=== PATIENT | female | born 1985 | race American Indian/Alaskan Native ===

== ENCOUNTER 2017-08-28 22:24 | Emergency (ER) | payer MEDICAID, OTHER ==
[2017-08-28 23:37] LABS: Basophils % (Auto) 0.9 % (0.0-1.8); Eosinophils % (Auto) 1.7 % (0.0-4.3); Hematocrit 30.2 % (30.3-42.9); Hemoglobin 9.6 gm/dl (10.1-14.3); Mean Corpuscular HGB Conc 32 % (30-34); Platelet Count 330 K/mm3 (140-440); Red Blood Count 4.65 M/mm3 (3.65-5.03); White Blood Count 8.2 K/mm3 (4.5-11.0)
[2017-08-28 23:40] LABS: Mean Corpuscular Hemoglobin 21 pg (28-32); Mean Corpuscular Volume 65 fl (79-97)
[2017-08-28 23:55] LABS: Bilirubin,Urine NEG (Negative); Blood,Urine NEG (Negative); Ketones,Urine NEG (Negative); Leukocyte Esterase,Urine TR (Negative); Mucus,Urine FEW /HPF; Nitrite,Urine NEG (Negative); Protein,Urine <15 mg/dL mg/dL (Negative)
[2017-08-28 23:56] LABS: Alanine Aminotransferase 7 units/L (7-56); Albumin 3.9 g/dL (3.9-5); Albumin/Globulin Ratio 1.2 %; Alkaline Phosphatase 50 units/L (35-129); Anion Gap 16 mmol/L; BUN/Creatinine Ratio 13; Bilirubin,Total < 0.20 mg/dL (0.1-1.2); Blood Urea Nitrogen 8 mg/dL (7-17); Calcium 8.2 mg/dL (8.4-10.2); Carbon Dioxide 22 mmol/L (22-30); Chloride 102.5 mmol/L (98-107); Glucose 100 mg/dL (65-100); Lipase 29 units/L (13-60); Potassium 3.6 mmol/L (3.6-5.0); Sodium 137 mmol/L (137-145); Total Protein 7.2 g/dL (6.3-8.2)
[2017-08-29 04:33] VITALS: BP 141/67
--- NOTE | 2017-08-29 06:43 | Emergency Department Report ---
ED HPI - General Chief complaint: Abdominal Pain Stated complaint: ABDOMINAL PAIN Time Seen by Provider: 08/29/17 06:35 Source: patient Mode of arrival: Ambulatory Limitations: No Limitations - History of Present Illness Initial comments: This is a 31-year-old female who is previously known to this provider. She is 5, para 3, last menstrual period is July 14. She thinks that she is . She presents to the ER with crampy lower abdominal pain. The pain is intermittent. It does not radiate anywhere. It increases with palpation and decreases with rest. No nausea, vomiting, diarrhea or vaginal bleeding. No irritative or obstructive urinary symptoms. No care as of yet. MD Complaint: abdominal pain -: Gradual Location: pelvis Radiation: none Severity: mild Quality: cramping Consistency: intermittent Improves with: rest Worsens with: movement Associated symptoms: abdominal pain. denies: nausea/vomiting, vaginal bleeding , vaginal discharge, dysuria, headache, vision changes, malaise, dysparuenia, shortness of breath, syncope, weakness - Related Data Previous Rx's Medication Instructions Recorded Last Taken Type Acetaminophen [Tylenol Arthritis] 650 mg PO Q6HR PRN #30 tablet.er 08/29/17 Unknown Rx Doxylamine Succinate/Vit B6 1 each PO QHS PRN #30 tablet. 08/29/17 Unknown Rx [Sharmin Crystal 10-10 mg Tablet] Florencia Root [Florencia] 250 mg PO QID PRN #30 capsule 08/29/17 Unknown Rx Vit Calc,Iron,Folic 1 each PO QDAY #30 tablet 08/29/17 Unknown Rx [ Vitamins] Allergies Allergy/AdvReac Type Severity Reaction Status Date / Time No Known Allergies Allergy Unverified 08/17/13 13:27 ED Review of Systems ROS: Stated complaint: ABDOMINAL PAIN Other details as noted in HPI Constitutional: denies: fever Eyes: denies: eye discharge ENT: denies: epistaxis Respiratory: denies: cough Cardiovascular: denies: chest pain Gastrointestinal: abdominal pain Genitourinary: abnormal menses. denies: dysuria Musculoskeletal: denies: back pain Skin: denies: lesions Neurological: denies: headache Psychiatric: denies: anxiety ED Past Medical Hx - Past Medical History Previous Medical History?: No Hx Hypertension: No Hx Heart Attack/AMI: No Hx Diabetes: No Hx Liver Disease: No Hx Renal Disease: No Hx Seizures: No Hx Asthma: No Hx COPD: No Hx Tuberculosis: No - Surgical History Past Surgical History?: Yes Additional Surgical History: c section - Social History Smoking Status: Never Smoker Substance Use Type: None - Medications Home Medications: Home Medications Medication Instructions Recorded Confirmed Last Taken Type Acetaminophen [Tylenol Arthritis] 650 mg PO Q6HR PRN #30 tablet.er 08/29/17 Unknown Rx Doxylamine Succinate/Vit B6 1 each PO QHS PRN #30 tablet.dr 08/29/17 Unknown Rx [Diclegis Dr 10-10 mg Tablet] Florencia Root [Florencia] 250 mg PO QID PRN #30 capsule 08/29/17 Unknown Rx Vit Calc,Iron,Folic 1 each PO QDAY #30 tablet 08/29/17 Unknown Rx [ Vitamins] ED Physical Exam - General Limitations: No Limitations General appearance: alert, in no apparent distress - Head Head exam: Present: atraumatic, normocephalic - Eye Eye exam: Present: normal appearance, EOMI. Absent: nystagmus - ENT ENT exam: Present: normal exam, normal orophraynx, mucous membranes moist, normal external ear exam - Neck Neck exam: Present: normal inspection, full ROM. Absent: tenderness, meningismus - Respiratory Respiratory exam: Present: normal lung sounds bilaterally. Absent: respiratory distress, wheezes, rales, rhonchi, stridor, chest wall tenderness, accessory muscle use, decreased breath sounds, prolonged expiratory - Cardiovascular Cardiovascular Exam: Present: regular rate, normal rhythm, normal heart sounds. Absent: bradycardia, tachycardia, irregular rhythm, systolic murmur, diastolic murmur, rubs, gallop - GI/Abdominal GI/Abdominal exam: Present: soft, normal bowel sounds. Absent: distended, tenderness, guarding, rebound, rigid, pulsatile mass - Extremities Exam Extremities exam: Present: normal inspection, full ROM, normal capillary refill. Absent: pedal edema, joint swelling, calf tenderness - Back Exam Back exam: Present: normal inspection, full ROM. Absent: tenderness, CVA tenderness (R), CVA tenderness (L), muscle spasm, paraspinal tenderness, vertebral tenderness - Neurological Exam Neurological exam: Present: alert, oriented X3, normal gait, other (Extraocular movements intact. Tongue midline. No facial droop. Facial sensation intact to light touch in the V1, V2, V3 distribution bilaterally. 5 and 5 strength in 4 extremities.. Sensation is intact to light touch in 4 extremities.). Absent : motor sensory deficit - Psychiatric Psychiatric exam: Present: normal affect, normal mood - Skin Skin exam: Present: warm, dry, intact, normal color. Absent: rash ED Course Vital Signs 08/28/17 08/28/17 08/29/17 22:26 22:29 02:47 Temperature 98.0 F 98.0 F 98.1 F Pulse Rate 96 H 96 H 69 Respiratory 18 17 Rate Blood Pressure 142/84 142/84 137/72 Blood Pressure [Left] O2 Sat by Pulse 100 100 100 Oximetry 08/29/17 04:32 Temperature 97.6 F Pulse Rate 73 Respiratory 15 Rate Blood Pressure Blood Pressure 141/67 [Left] O2 Sat by Pulse 100 Oximetry - Reevaluation(s) Reevaluation #1: 08/29/17 09:21 Patient is given a copy of her ultrasound report. ED Medical Decision Making - Lab Data Result diagrams: 08/28/17 23:14 08/28/17 23:14 Vital Signs 08/28/17 08/28/17 08/29/17 22:26 22:29 02:47 Temperature 98.0 F 98.0 F 98.1 F Pulse Rate 96 H 96 H 69 Respiratory 18 17 Rate Blood Pressure 142/84 142/84 137/72 Blood Pressure [Left] O2 Sat by Pulse 100 100 100 Oximetry 08/29/17 04:32 Temperature 97.6 F Pulse Rate 73 Respiratory 15 Rate Blood Pressure Blood Pressure 141/67 [Left] O2 Sat by Pulse 100 Oximetry Lab Results 08/28/17 08/28/17 08/28/17 Range/Units 23:14 23:14 23:14 WBC 8.2 (4.5-11.0) K/mm3 RBC 4.65 (3.65-5.03) M/mm3 Hgb 9.6 L (10.1-14.3) gm/dl Hct 30.2 L (30.3-42.9) % MCV 65 L (79-97) fl MCH 21 L (28-32) pg MCHC 32 (30-34) % RDW 17.0 H (13.2-15.2) % Plt Count 330 (140-440) K/mm3 Lymph % (Auto) 35.3 H (13.4-35.0) % [place] % (Auto) 7.5 H (0.0-7.3) % Eos % (Auto) 1.7 (0.0-4.3) % Baso % (Auto) 0.9 (0.0-1.8) % Lymph # 2.9 (1.2-5.4) K/mm3 [place] # 0.6 (0.0-0.8) K/mm3 Eos # 0.1 (0.0-0.4) K/mm3 Baso # 0.1 (0.0-0.1) K/mm3 Seg Neutrophils % 54.6 (40.0-70.0) % Seg Neutrophils # 4.5 (1.8-7.7) K/mm3 Sodium 137 (137-145) mmol/L Potassium 3.6 (3.6-5.0) mmol/L Chloride 102.5 (98-107) mmol/L Carbon Dioxide 22 (22-30) mmol/L Anion Gap 16 mmol/L BUN 8 (7-17) mg/dL Creatinine 0.6 L (0.7-1.2) mg/dL Estimated GFR > 60 ml/min BUN/Creatinine Ratio 13 % Glucose 100 (65-100) mg/dL Calcium 8.2 L (8.4-10.2) mg/dL Total Bilirubin < 0.20 (0.1-1.2) mg/dL AST 9 (5-40) units/L ALT 7 (7-56) units/L Alkaline Phosphatase 50 (35-129) units/L Total Protein 7.2 (6.3-8.2) g/dL Albumin 3.9 (3.9-5) g/dL Albumin/Globulin Ratio 1.2 % Lipase 29 (13-60) units/L HCG, Qual Positive (Negative) HCG, Quant (0-4) mIU/mL Urine Color (Yellow) Urine Turbidity (Clear) Urine pH (5.0-7.0) Ur Specific [place] (1.003-1.030) Urine Protein (Negative) mg/dL Urine Glucose (UA) (Negative) mg/dL Urine Ketones (Negative) mg/dL Urine Blood (Negative) Urine Nitrite (Negative) Urine Bilirubin (Negative) Urine Urobilinogen (<2.0) mg/dL Ur Leukocyte Esterase (Negative) Urine WBC (Auto) (0.0-6.0) /HPF Urine RBC (Auto) (0.0-6.0) /HPF U Epithel Cells (Auto) (0-13.0) /HPF Urine Mucus /HPF Blood Type 08/28/17 08/29/17 08/29/17 Range/Units 23:20 06:50 06:50 WBC (4.5-11.0) K/mm3 RBC (3.65-5.03) M/mm3 Hgb (10.1-14.3) gm/dl Hct (30.3-42.9) % MCV (79-97) fl MCH (28-32) pg MCHC (30-34) % RDW (13.2-15.2) % Plt Count (140-440) K/mm3 Lymph % (Auto) (13.4-35.0) % [place] % (Auto) (0.0-7.3) % Eos % (Auto) (0.0-4.3) % Baso % (Auto) (0.0-1.8) % Lymph # (1.2-5.4) K/mm3 [place] # (0.0-0.8) K/mm3 Eos # (0.0-0.4) K/mm3 Baso # (0.0-0.1) K/mm3 Seg Neutrophils % (40.0-70.0) % Seg Neutrophils # (1.8-7.7) K/mm3 Sodium (137-145) mmol/L Potassium (3.6-5.0) mmol/L Chloride (98-107) mmol/L Carbon Dioxide (22-30) mmol/L Anion Gap mmol/L BUN (7-17) mg/dL Creatinine (0.7-1.2) mg/dL Estimated GFR ml/min BUN/Creatinine Ratio % Glucose (65-100) mg/dL Calcium (8.4-10.2) mg/dL Total Bilirubin (0.1-1.2) mg/dL AST (5-40) units/L ALT (7-56) units/L Alkaline Phosphatase (35-129) units/L Total Protein (6.3-8.2) g/dL Albumin (3.9-5) g/dL Albumin/Globulin Ratio % Lipase (13-60) units/L HCG, Qual (Negative) HCG, Quant 15615 H (0-4) mIU/mL Urine Color Yellow (Yellow) Urine Turbidity Clear (Clear) Urine pH 6.0 (5.0-7.0) Ur Specific [place] 1.020 (1.003-1.030) Urine Protein <15 mg/dl (Negative) mg/dL Urine Glucose (UA) Neg (Negative) mg/dL Urine Ketones Neg (Negative) mg/dL Urine Blood Neg (Negative) Urine Nitrite Neg (Negative) Urine Bilirubin Neg (Negative) Urine Urobilinogen 4.0 (<2.0) mg/dL Ur Leukocyte Esterase Tr (Negative) Urine WBC (Auto) 1.0 (0.0-6.0) /HPF Urine RBC (Auto) 2.0 (0.0-6.0) /HPF U Epithel Cells (Auto) 3.0 (0-13.0) /HPF Urine Mucus Few /HPF Blood Type O POSITIVE - Radiology Data Radiology results: report reviewed, image reviewed Obstetrics ultrasound demonstrates intrauterine , gestational age of 6 weeks and 4 days, per gestational hemorrhage involves less than 50% of the gestational sac area. heartbeat noted at 118 bpm. Gestational sac is morphologically normal. - Medical Decision Making Differential diagnosis: , miscarriage, threatened miscarriage Assessment and plan: 31-year-old female with lower abdominal cramping and pain, found to be , intrauterine is identified, gestational hemorrhage also suggested, patient Rh+, RhoGAM candidate, urinalysis unremarkable, found to be slightly hypertensive without proteinuria. Patient is otherwise afebrile, with reassuring vital signs, appears quite comfortable, the patient has no abdominal tenderness, rebound, guarding. Patient will be started on vitamins, as she denies medication, instructed to rest and avoid heavy lifting and avoid sex, and to follow up with an outpatient gage designer. Patient observed in the ER for a prolonged period of time, abdomen soft on multiple repeat examinations, the patient is suitable to follow up with outpatient primary care doctor. Critical care attestation.: If time is entered above; I have spent that time in minutes in the direct care of this critically ill patient, excluding procedure time. ED Disposition Clinical Impression: Disposition: DC-01 TO HOME OR SELFCARE Is pt being admited?: No Does the pt Need Aspirin: No Condition: Stable Instructions: Threatened Miscarriage (ED) Additional Instructions: Take the nausea medication, pain medication, vitamins as needed/ directed. Follow up with an outpatient gage designer as soon as possible to start care. Ultrasound demonstrates that is 6 weeks and 4 days, with bleeding inside the uterus, this is consistent with a threatened miscarriage. Rest and avoid heavy lifting, avoid strenuous physical activity, and did not have sex with a partner until he gage designer instructs her to do so. Bleeding may start through the vagina in the next few days to weeks. This is also consistent with a miscarriage. Please note that blood pressure was also slightly elevated, and this should be followed up by a gage designer as recommended, as hypertension/elevated blood pressure can cause disability, paralysis, complications. Follow up with any of the listed gynecology specialist as recommended, return to the ER right away with new pain, worsening pain, migration of pain, fevers, chills, lethargy, irritability, projectile vomiting, change in mental status, bleeding more than 2 pads soaked per hour, lightheadedness, loss of consciousness, passing out. Prescriptions: Doxylamine Succinate/Vit B6 [Sharmin Crystal 10-10 mg Tablet] 1 each PO QHS PRN #30 tablet. PRN Reason: Nausea Acetaminophen [Tylenol Arthritis] 650 mg PO Q6HR PRN #30 tablet.er PRN Reason: Pain Florencia Root [Florencia] 250 mg PO QID PRN #30 capsule PRN Reason: Nausea Vit Calc,Iron,Folic [ Vitamins] 1 each PO QDAY #30 tablet Referrals: PRIMARY CAREMD [Primary Care Provider] - 3-5 Days [facility] [Provider Group] - 3-5 Days [facility] [Provider Group] - 3-5 Days [facility] [Provider Group] - 3-5 Days Forms: Work/School Release Form(ED)
--- NOTE | 2017-08-29 08:09 | Ultrasound Report ---
FINAL REPORT EXAM: US OB \T\lt; = 14 WEEKS FETUS HISTORY: , lower abdominal cramping COMPARISONS: None. FINDINGS: Transabdominal grayscale, color Doppler and M-mode first-trimester ultrasound Single living intrauterine is present with recorded cardiac activity of 118 beats per minute and crown-rump length of 7 millimeters, which corresponds to estimated gestational age of 6 weeks 4 days and delivery date of 04/20/2018. Gestational sac is morphologically normal. Ill-defined hypoechoic area adjacent to the gestational sac measures up to 3.8 cm and involves less than 50 percent of the gestational sac surface area. The cervix appears closed and measures approximately 3 cm in length. A nabothian cyst is noted. The right ovary measures 7 x 5.5 x 4.6 cm and contains functional cysts measuring up to 4.5 cm. The left ovary measures 4 x 2.2 x 2.1 cm and is sonographically unremarkable. IMPRESSION: Single living intrauterine with estimated gestational age of 6 weeks 4 days and delivery date of 04/20/2018. A perigestational hemorrhage involves less than 50 percent of the gestational sac surface area.
[2017-08-29] MEDS ORDERED: TYLENOL PO STA (09:19)
== END 2017-08-29 09:50 | disposition home or self-care (01) ==
LOC: ED 22:24
DX: O26.891 Other specified pregnancy related conditions, first trimester (principal); R10.9 Unspecified abdominal pain; Z98.890 Other specified postprocedural states; Z3A.01 Less than 8 weeks gestation of pregnancy
CPT/HCPCS: 36415; 76801; 76817; 80053; 81001; 83690; 84702; 84703; 85025; 86850; 86900; 86901

== ENCOUNTER 2018-01-14 21:34 | Outpatient (CLI) | payer MEDICAID ==
[2018-01-14] MEDS ORDERED: LACTATED RINGERS 1,000 ML IV ONE (21:54)
[2018-01-14 22:03] VITALS: BP 123/61
[2018-01-14 22:07] LABS: Bacteria,Urine 1+ /HPF (Negative); Mucus,Urine 2+ /HPF
[2018-01-14 22:11] LABS: Bilirubin,Urine NEG (Negative); Blood,Urine NEG (Negative); Color,Urine Blue (Yellow); Protein,Urine <15 mg/dL mg/dL (Negative); Urobilinogen,Urine < 2.0 mg/dL (<2.0)
== END 2018-01-14 22:50 | disposition home or self-care (01) ==
LOC: TRG 21:34
PROVIDERS: ATTEND Obstetrics & Gynecology
DX: O47.02 False labor before 37 completed weeks of gestation, second trimester (principal); Z87.891 Personal history of nicotine dependence; Z3A.26 26 weeks gestation of pregnancy
CPT/HCPCS: 59025; 81001

== ENCOUNTER 2018-04-27 11:29 | Observation (INO) | payer MEDICAID ==
[2018-04-27 15:27] LABS: Hematocrit 34.4 % (30.3-42.9); Hemoglobin 11.3 gm/dl (10.1-14.3); Mean Corpuscular HGB Conc 33 % (30-34); Mean Corpuscular Hemoglobin 26 pg (28-32); Mean Corpuscular Volume 80 fl (79-97); Platelet Count 338 K/mm3 (140-440); Red Blood Count 4.28 M/mm3 (3.65-5.03); Red Cell Distribution Width 14.4 % (13.2-15.2)
[2018-04-27] MEDS: LACTATED RINGERS 1,000 ML IV SCH (15:45)
[2018-04-27 15:56] LABS: Alanine Aminotransferase 32 units/L (7-56); Albumin 3.4 g/dL (3.9-5); BUN/Creatinine Ratio 12; Blood Urea Nitrogen 7 mg/dL (7-17); Calcium 8.5 mg/dL (8.4-10.2); Hemolysis Index 7
[2018-04-27 15:58] LABS: Bilirubin,Direct < 0.2 mg/dL (0-0.2)
[2018-04-27] MEDS: NORMODYNE PO SCH ×2 (16:00→22:10)
[2018-04-27] MEDS ORDERED: MAGNESIUM SULFATE 4GM/100ML 4 GM/100 ML BAG IV ONE (16:00)
[2018-04-27] MEDS ORDERED: MOTRIN PO PRN (16:17)
[2018-04-27] MEDS: MAGNESIUM SULFATE 40GM/1000ML 40 GM/1,000 ML BAG IV SCH (17:14)
[2018-04-27 17:29] LABS: Bacteria,Urine 1+ /HPF (Negative); Bilirubin,Urine NEG (Negative); Blood,Urine MOD (Negative); Color,Urine Straw (Yellow); Protein,Urine <15 mg/dL mg/dL (Negative); Urobilinogen,Urine < 2.0 mg/dL (<2.0)
[2018-04-28] MEDS: LACTATED RINGERS 1,000 ML IV SCH (04:00)
--- NOTE | 2018-04-28 08:29 | History and Physical Report ---
History of Present Illness Date of examination: 04/28/18 Date of admission: 04/27/18 14:23 History of present illness: sent over from clinic for elevated BP this is a32 yo 2 weeks from [facility]. came to clinic for a incision check. Noted to have bp elevated to 140/108. admitted for preeclampsia labs and mag. Past History Past Medical History: no pertinent history Past Surgical History: section Family/Genetic History: none Social history: no significant social history, . denies: smoking, alcohol abuse, prescription drug abuse, IV drug use - Obstetrical History : 5 Medications and Allergies Allergies Allergy/AdvReac Type Severity Reaction Status Date / Time No Known Allergies Allergy Unverified 08/17/13 13:27 Home Medications Medication Instructions Recorded Confirmed Last Taken Type Acetaminophen [Tylenol Arthritis] 650 mg PO Q6HR PRN #30 tablet.er 08/29/1705/09 Unknown Rx Doxylamine Succinate/Vit B6 1 each PO QHS PRN #30 tablet. 08/29/17 04/27/18 Unknown Rx [Sharmin Crystal 10-10 mg Tablet] Florencia Root [Florencia] 250 mg PO QID PRN #30 capsule 08/29/17 04/27/18 Unknown Rx Vit Calc,Iron,Folic 1 each PO QDAY #30 tablet 08/29/17 04/27/18 3 Days Ago Rx [ Vitamins] ~04/24/18 Ferrous Sulfate 325 mg PO BID #60 tablet. 04/13/18 04/27/18 2 Days Ago Rx ~04/25/18 Ibuprofen [Motrin] 600 mg PO Q8H PRN #30 tablet 04/13/18 04/27/18 Unknown Rx oxyCODONE /ACETAMINOPHEN [Percocet 1 tab PO Q4HR #30 tab 04/13/18 04/27/18 Unknown Rx 5/325] Docusate Sodium [Colace] 100 mg PO BID PRN #30 capsule 04/14/18 04/27/18 2 Days Ago Rx ~04/25/18 Ibuprofen [Motrin] 600 mg PO Q8H PRN #30 tablet 04/14/18 04/27/18 04/26/18 17: 00 Rx oxyCODONE /ACETAMINOPHEN [Percocet 1 tab PO Q4HR #30 tab 05/04/27/1804/26 21:00 Rx 5/325] Active Meds: Active Medications Lactated Ringer's (Lactated Ringers) 1,000 mls @ 125 mls/hr IV DIRECT ROBERTO Last Admin: 04/28/18 04:00 Dose: 125 mls/hr Magnesium Sulfate (Magnesium Sulfate 40gm/1000ml) 40 gm in 1,000 mls @ 50 mls/ hr IV DIRECT ROBERTO Last Admin: 04/27/18 17:14 Dose: 2 gm/hr, 50 mls/hr Ibuprofen (Motrin) 800 mg PO Q8H PRN PRN Reason: Pain, Mild (1-3) Last Admin: 04/28/18 01:24 Dose: 800 mg Oxycodone/Acetaminophen (Percocet 5/325) 1 tab PO Q6H PRN PRN Reason: Pain, Moderate (4-6) Review of Systems All systems: negative - Vital Signs Vital signs: Vital Signs Temp Pulse Resp BP Pulse Ox 98.9 F 57 L 16 173/96 100 04/27/18 14:35 04/27/18 14:35 04/27/18 14:35 04/27/18 14:35 04/27/18 14:35 Temp Pulse Resp BP Pulse Ox 98.7 F 86 20 138/84 98 04/28/18 02:34 04/28/18 06:22 04/28/18 06:22 04/28/18 06:22 04/28/18 06:22 - Physical Exam Breasts: Positive: normal Cardiovascular: Regular rate, Normal S1 Lungs: Positive: Clear to auscultation, Normal air movement Abdomen: Positive: normal appearance, soft, normal bowel sounds. Negative: distention, tenderness, guarding Genitourinary (Female): Positive: normal external genitalia Vulva: both: normal Vagina: Positive: normal moisture Cervix: Negative: lesion Extremities: Positive: normal Deep Tendon Reflex Grade: Normal +2 Results Result Diagrams: 04/27/18 15:12 04/27/18 15:12 Abnormal lab results 04/27/18 04/27/18 04/27/18 Range/Units 15:12 15:12 17:00 MCH 26 L (28-32) pg Creatinine 0.6 L (0.7-1.2) mg/dL Glucose 108 H (65-100) mg/dL Magnesium (1.7-2.3) mg/dL Albumin 3.4 L (3.9-5) g/dL Urine pH 8.0 H (5.0-7.0) 04/28/18 Range/Units 03:07 MCH (28-32) pg Creatinine (0.7-1.2) mg/dL Glucose (65-100) mg/dL Magnesium 5.60 H (1.7-2.3) mg/dL Albumin (3.9-5) g/dL Urine pH (5.0-7.0) All other labs normal. Assessment and Plan A/P preeclampsia Admit mag 4 and 2 g IV, labs for PIH Antihypertensive labetol
--- NOTE | 2018-04-28 08:31 | Progress Note ---
Assessment and Plan HD#1 PP preeclampsia Mag started will continue for 24hr total Increase labetolol to 200 mg bid from 100 mg if not assisting with BP will add procardia later today routine care Subjective - Subjective Date of service: 04/28/18 Principal diagnosis: PP preeclampsia Interval history: sent over from clinic for elevated BP this is a32 yo 2 weeks from [facility]. came to clinic for a incision check. Noted to have bp elevated to 140/108. admitted for preeclampsia labs and mag. Patient reports: appetite normal, voiding normally, pain well controlled, flatus , ambulating normally Objective - Vital Signs Latest vital signs: Vital Signs Temp Pulse Pulse Resp BP BP Pulse Ox 04/28/18 06:22 86 20 138/84 98 04/28/18 04:17 92 H 20 142/87 100 04/28/18 02:34 98.7 F 77 20 159/88 96 04/28/18 00:13 98.3 F 83 20 155/90 98 04/27/18 22:31 98.4 F 71 20 154/86 99 04/27/18 22:10 68 165/95 04/27/18 20:58 98.5 F 72 22 155/90 99 04/27/18 17:21 71 150/87 98 04/27/18 17:19 70 154/87 98 04/27/18 17:10 69 148/88 99 04/27/18 17:05 75 136/75 99 04/27/18 17:00 75 135/75 98 04/27/18 16:58 98.4 F 16 04/27/18 16:55 84 159/87 98 04/27/18 16:50 67 157/92 99 04/27/18 16:45 60 155/98 100 04/27/18 16:42 62 152/86 99 04/27/18 16:30 65 163/84 99 04/27/18 16:00 57 L 173/96 04/27/18 14:35 98.9 F 57 L 57 L 16 173/96 100 Intake and Output 04/27/18 04/28/18 04/28/18 23:59 07:59 15:59 Intake Total 1340 120 Output Total 700 Balance 1340 -580 Intake: IV 1100 Lactated Ringers 1,000 ml 1000 @ 125 mls/hr IV DIRECT ROBERTO Rx#:[id number] MAGNESIUM SULFATE 4GM/ 100 100ML 4 gm In 100 ml @ 300 mls/hr IV ONCE ONE Rx #:[id number] Intake, Free Water 240 120 Output: Urine 700 Void 700 Other: Total, Output Amount 700 Voiding Method Toilet # Voids Void 3 - Exam Breasts: Present: normal Cardiovascular: Present: Regular rate, Normal S1 Lungs: Present: Clear to auscultation, Normal air movement Abdomen: Present: normal appearance, soft, normal bowel sounds. Absent: distention, tenderness Uterus: Present: normal, firm Extremities: Present: normal Deep Tendon Reflex Grade: Normal +2 Incision: Present: normal, dry, intact - Labs Labs: Abnormal lab results 04/27/18 04/27/18 04/27/18 Range/Units 15:12 15:12 17:00 MCH 26 L (28-32) pg Creatinine 0.6 L (0.7-1.2) mg/dL Glucose 108 H (65-100) mg/dL Magnesium (1.7-2.3) mg/dL Albumin 3.4 L (3.9-5) g/dL Urine pH 8.0 H (5.0-7.0) 04/28/18 Range/Units 03:07 MCH (28-32) pg Creatinine (0.7-1.2) mg/dL Glucose (65-100) mg/dL Magnesium 5.60 H (1.7-2.3) mg/dL Albumin (3.9-5) g/dL Urine pH (5.0-7.0)
[2018-04-28] MEDS: NORMODYNE PO SCH ×2 (09:55→21:49)
[2018-04-28] MEDS: PERCOCET 5/325 PO PRN ×2 (13:40→22:40)
[2018-04-28] MEDS: MAGNESIUM SULFATE 40GM/1000ML 40 GM/1,000 ML BAG IV SCH (14:13)
--- NOTE | 2018-04-29 08:26 | Progress Note ---
Assessment and Plan HD#2 PP preeclampsia Mag completed continue labetolol 200 bid added procardia 60mg this am consider d/c if BP stablilize today with addition of procardia Subjective - Subjective Principal diagnosis: PP preeclampsia Interval history: sent over from clinic for elevated BP this is a32 yo 2 weeks from [facility]. came to clinic for a incision check. Noted to have bp elevated to 140/108. admitted for preeclampsia labs and mag. Patient reports: appetite normal, voiding normally, pain well controlled, flatus , ambulating normally Objective - Vital Signs Latest vital signs: Vital Signs Temp Pulse Resp BP BP Pulse Ox 04/29/18 04:31 98.5 F 72 20 148/84 04/29/18 00:19 98.8 F 77 20 136/79 94 04/28/18 21:49 143/89 04/28/18 21:18 98.8 F 74 20 143/89 96 04/28/18 16:00 97.6 F 77 16 135/77 99 04/28/18 14:00 97.9 F 75 18 133/84 99 04/28/18 13:40 20 04/28/18 12:00 97.8 F 76 18 144/96 99 04/28/18 10:30 97.8 F 74 18 148/92 98 04/28/18 09:55 80 138/84 04/28/18 09:31 97.7 F 81 18 140/96 99 Intake and Output 04/28/18 04/29/18 04/29/18 23:59 07:59 15:59 Intake Total 840 240 Output Total 1100 Balance -260 240 Intake: Oral 480 Intake, Free Water 360 240 Output: Urine 1100 Void 1100 Other: Total, Intake Amount 480 Total, Output Amount 600 # Voids Void 4 - Exam Breasts: Present: normal Cardiovascular: Present: Regular rate, Normal S1 Lungs: Present: Clear to auscultation Abdomen: Present: normal appearance, soft, normal bowel sounds. Absent: distention, tenderness, guarding Vulva: both: normal Uterus: Present: normal Extremities: Present: normal Deep Tendon Reflex Grade: Normal +2 Incision: Present: normal, dry, intact - Labs Labs: Abnormal lab results 04/28/18 04/28/18 04/28/18 Range/Units 07:37 12:01 18:10 Magnesium 5.60 H 5.10 H 4.90 H (1.7-2.3) mg/dL
[2018-04-29] MEDS: NORMODYNE PO SCH ×2 (10:20→23:05)
[2018-04-29] MEDS: PROCARDIA XL PO SCH (10:20)
[2018-04-29] MEDS ORDERED: NORMODYNE PO SCH (14:00)
[2018-04-29] MEDS ORDERED: NORMODYNE PO NR (15:00)
[2018-04-30] MEDS: NORMODYNE PO SCH (09:29)
[2018-04-30] MEDS: PROCARDIA XL PO SCH (09:29)
--- NOTE | 2018-04-30 09:52 | Progress Note ---
Assessment and Plan HD#3 PP preeclampsia S/P MAG bp NORMALIZED ON PROCARDIA AND LABETOLOL will discharge home with f/u next week Subjective - Subjective Date of service: 04/30/18 Principal diagnosis: PP preeclampsia Interval history: sent over from clinic for elevated BP this is a32 yo 2 weeks from [facility]. came to clinic for a incision check. Noted to have bp elevated to 140/108. admitted for preeclampsia labs and mag. Patient reports: appetite normal, voiding normally, pain well controlled, flatus , ambulating normally [place]: doing well Objective - Vital Signs Latest vital signs: Vital Signs Temp Pulse Resp BP BP 04/30/18 04:10 98.2 F 67 18 124/64 04/30/18 00:00 98.1 F 86 18 128/78 04/29/18 23:05 131/72 04/29/18 20:20 98.2 F 77 18 113/80 04/29/18 16:00 98.7 F 80 20 135/85 135/85 04/29/18 12:00 98.7 F 72 20 174/98 04/29/18 10:20 80 143/88 Intake and Output 04/29/18 04/30/18 04/30/18 23:59 07:59 15:59 Intake Total 240 Balance 240 Intake: Oral 240 Other: Total, Intake Amount 240 Voiding Method Toilet Toilet # Voids Void 1 - Exam Breasts: Present: normal Cardiovascular: Present: Regular rate, Normal S1 Lungs: Present: Clear to auscultation, Normal air movement Abdomen: Present: normal appearance, soft, normal bowel sounds. Absent: distention, tenderness, guarding Vulva: both: normal Uterus: Present: normal, firm, fundal height below umbilicus. Absent: bogginess , tenderness Extremities: Present: normal Deep Tendon Reflex Grade: Normal +2 Incision: Present: normal, dry, intact
--- NOTE | 2018-04-30 09:56 | Discharge Summary ---
Providers - Providers Date of Admission: 04/27/18 14:23 Date of discharge: 04/30/18 Attending physician: ELSA HERNANDES MD Primary care physician: ELSA HERNANDES MD Hospitalization Reason for admission: other (pp preeclampsia ) Hospital course: patient admitted to [facility] with elvated BP> PIH labs normal. Magf for 24 hrs. Antihypertensive meds labetolol and procardia contained BP to normal levles. Dishcarged in 3 days. f/u in 1 weeks Condition at discharge: Good Disposition: DC-01 TO HOME OR SELFCARE Plan - Discharge Medications Prescriptions: Labetalol [Normodyne TAB] 200 mg PO BID #30 tablet Labetalol [Normodyne TAB] 300 mg PO BID #60 tablet NIFEdipine XL [Procardia Xl] 60 mg PO QDAY #30 tablet - Provider Discharge Summary Additional instructions: [] Smoking cessation referral if applicable(refer to patient education folder for contact #) [] Refer to [facility]'s [facility] Booklet Call your doctor immediately for: * Fever > 100.5 * Heavy vaginal bleeding ( >1 pad per hour) * Severe persistent headache * Shortness of breath * Reddened, hot, painful area to leg or breast * Drainage or odor from incision. * Keep incision clean and dry at all times and follow doctor's instructions regarding bathing/showering - Follow up plan Follow up: ELSA HERNANDES MD [Primary Care Provider] - 7 Days
[2018-04-30 19:14] VITALS: BP 128/73
== END 2018-04-30 11:41 | disposition home or self-care (01) ==
LOC: 3A 11:29 → UNDOADMIN 11:29 → INTOOBSV 14:23 → OB 14:23
PROVIDERS: ADMIT Obstetrics & Gynecology; ATTEND Obstetrics & Gynecology
DX: O14.95 Unspecified pre-eclampsia, complicating the puerperium (principal)
CPT/HCPCS: 36415; 80048; 80074; 81001; 82565; 83735; 84550; 85027; 96365; 96366; G0378; G0379; J3475; J7120

== ENCOUNTER 2019-06-14 01:53 | Emergency (ER) | payer MEDICAID ==
[2019-06-14 01:57] VITALS: BP 144/90
[2019-06-14] MEDS ORDERED: BENADRYL PO ONE (02:08)
[2019-06-14] MEDS ORDERED: IBUPROFEN PO ONE (02:09)
--- NOTE | 2019-06-14 02:14 | Emergency Department Report ---
[facility] Chief Complaint: Eye Problems Stated Complaint: RT EYE REDNESS SORE THROAT Time Seen by Provider: 06/14/19 02:05 Duration: 2 Days Side: Right Severity: moderate Symptoms: Yes Eye Itching, Yes Eye Redness, Yes Eye Pain (burning ), Yes Mucous Drainage, Yes Purulent Drainage, No Blurred Vision, No Preceding URI, No H/O Allergic Rhinitis, No Contact Lens Use, No Trauma, No Fever, No Headache ED Review of Systems ROS: Stated complaint: RT EYE REDNESS SORE THROAT Other details as noted in HPI Constitutional: denies: chills, fever Eyes: eye pain (burnging irritation), eye discharge. denies: vision change ENT: ear pain Respiratory: denies: cough, shortness of breath, wheezing Cardiovascular: denies: chest pain, palpitations Endocrine: no symptoms reported Gastrointestinal: denies: abdominal pain, nausea, diarrhea Genitourinary: denies: urgency, dysuria, discharge Musculoskeletal: denies: back pain, joint swelling, arthralgia Skin: denies: rash, lesions Neurological: denies: headache, weakness, paresthesias Psychiatric: denies: anxiety, depression Hematological/Lymphatic: denies: easy bleeding, easy bruising ED Past Medical Hx - Past Medical History Previous Medical History?: Yes Hx Hypertension: No Hx Heart Attack/AMI: No Hx Congestive Heart Failure: No Hx Diabetes: No Hx Deep Vein Thrombosis: No Hx Liver Disease: No Hx Renal Disease: No Hx Sickle Cell Disease: No Hx Seizures: No Hx Asthma: No Hx COPD: No Hx Tuberculosis: No Hx HIV: No Additional medical history: hx preeclampsia - Surgical History Past Surgical History?: Yes Additional Surgical History: c section - Social History Smoking Status: Never Smoker Substance Use Type: Alcohol - Medications Home Medications: Home Medications Medication Instructions Recorded Confirmed Last Taken Type Acetaminophen [Tylenol Arthritis] 650 mg PO Q6HR PRN #30 tablet.er 08/29/17 04/27/18 Unknown Rx Doxylamine Succinate/Vit B6 1 each PO QHS PRN #30 tablet. 08/29/17 04/27/18 Unknown Rx [Sharmin Crystal 10-10 mg Tablet] Florencia Root [Florencia] 250 mg PO QID PRN #30 capsule 08/29/17 04/27/18 Unknown Rx Vit Calc,Iron,Folic 1 each PO QDAY #30 tablet 08/29/17 04/27/18 3 Days Ago Rx [ Vitamins] ~04/24/18 Ferrous Sulfate 325 mg PO BID #60 tablet. 04/13/18 04/27/18 2 Days Ago Rx ~04/25/18 Ibuprofen [Motrin] 600 mg PO Q8H PRN #30 tablet 04/13/18 04/27/18 Unknown Rx oxyCODONE /ACETAMINOPHEN [Percocet 1 tab PO Q4HR #30 tab 04/13/18 04/27/18 Unknown Rx 5/325] Docusate Sodium [Colace] 100 mg PO BID PRN #30 capsule 04/14/18 04/27/18 2 Days Ago Rx ~04/25/18 Ibuprofen [Motrin] 600 mg PO Q8H PRN #30 tablet 04/14/18 04/27/18 04/26/18 17:00 Rx oxyCODONE /ACETAMINOPHEN [Percocet 1 tab PO Q4HR #30 tab 04/14/18 04/27/18 04/26/18 21:00 Rx 5/325] Labetalol [Labetalol 200mg TAB] 200 mg PO BID #30 tablet 04/29/18 Unknown Rx NIFEdipine XL [Procardia Xl] 60 mg PO QDAY #30 tablet 04/29/18 Unknown Rx Labetalol [Labetalol 200mg TAB] 300 mg PO BID #60 tablet 04/30/18 Unknown Rx Ibuprofen [Motrin 800 MG tab] 800 mg PO Q8HR PRN #30 tablet 06/14/19 Unknown Rx Ketotifen Fumarate [Zaditor] 2 drops OP BID PRN #5 ml 06/14/19 Unknown Rx Polymyxin B Sulf/Trimethoprim 2 drops OP Q3H 10 Days #10 ml 06/14/19 Unknown Rx [Polytrim Eye Drops] [facility] Exam - Exam General: Vital signs noted. No distress. Alert and acting appropriately. Eye Exam: Right Injection, Right Mucous Discharge, Right Purulent Discharge, Right Photophobia, Both EOMI, Neither Chemosis, Neither Abnormal Pupil, Neither Eye Foreign Body, Neither Lid Foreign Body, Neither Corneal Edema HEENT: No Nasal Congestion, No Pharyngeal Erythema Remainder of HEENT: Normal Lungs: Yes Clear Lung Sounds, Yes Good Air Exchange, No Wheezes, No Stridor, No Cough, No Nasal Flaring, No Retractions, No Use of Accessory Muscles ED Course Vital Signs 06/14/19 06/14/19 01:54 01:55 Temperature 97.7 F 97.7 F Pulse Rate 86 Respiratory 18 Rate Blood Pressure 144/90 O2 Sat by Pulse 100 Oximetry ED Medical Decision Making - Medical Decision Making this is straight forward conjuncititis plan, polytrim, zatidor, ibuprofen follow up with ophthalmology in 2-3 days return to ed if symptoms worsen, visual acuity is 20/30 bilat no fever no chills no headache no loss or vision. Daughter has [facility] Critical care attestation.: If time is entered above; I have spent that time in minutes in the direct care of this critically ill patient, excluding procedure time. ED Disposition Clinical Impression: Conjunctivitis Qualifiers: Conjunctivitis type: acute Acute conjunctivitis type: bacterial Laterality: right Qualified Code(s): H10.31 - Unspecified acute conjunctivitis, right eye Disposition: DC- TO HOME OR SELFCARE Is pt being admited?: No Does the pt Need Aspirin: No Condition: Stable Instructions: Conjunctivitis (ED) Prescriptions: Ibuprofen [Motrin 800 MG tab] 800 mg PO Q8HR PRN #30 tablet PRN Reason: pain Polymyxin B Sulf/Trimethoprim [Polytrim Eye Drops] 2 drops OP Q3H 10 Days #10 ml Ketotifen Fumarate [Zaditor] 2 drops OP BID PRN #5 ml PRN Reason: itching burning Referrals: ETELVINA SHEEHAN DO [Staff Physician] - 3-5 Days Forms: Work/School Release Form(ED) Time of Disposition: 02:16
== END 2019-06-14 02:29 | disposition home or self-care (01) ==
LOC: ED 01:53
DX: H10.9 Unspecified conjunctivitis (principal); Z79.899 Other long term (current) drug therapy
CPT/HCPCS: 99282

== ENCOUNTER 2022-04-21 13:04 | Emergency (ER) | payer SELFPAY | END 2022-04-21 13:10 | disposition left against medical advice (07) | LOC: ED 13:04 | DX: J02.9 Acute pharyngitis, unspecified (principal); Z53.21 Procedure and treatment not carried out due to patient leaving prior to being seen by health care provider ==